=== PATIENT | female | born 1985 | race Caucasian/White ===

== ENCOUNTER 2017-07-09 10:15 | Emergency (ER) | payer SELFPAY ==
--- NOTE | 2017-07-09 10:52 | ER Document Report ---
ED GI/ - General Chief Complaint: Urinary Problem Stated Complaint: URINARY ISSUES Time Seen by Provider: 07/09/17 10:26 Mode of Arrival: Ambulatory Information source: Patient TRAVEL OUTSIDE OF THE U.S. IN LAST 30 DAYS: No - HPI Patient complains to provider of: Dysuria, Hematuria Onset: Other - 2 weeks Timing/Duration: Gradual, Persistent Quality of pain: Burning Severity at maximum: Moderate Severity in ED: Moderate Pain Level: 4 Location: Suprapubic Similar symptoms previously: Yes Recently seen / treated by doctor: No Notes: 07/09/17 10:50 Patient is a 32-year-old female who presents to the emergency room complaining of dysuria with urinary frequency and hematuria that is been worsening over the past 2 weeks, she denies any fevers, no nausea or vomiting, states she tried drinking cranberry juice and lots of water at home but symptoms have worsened, denies any vaginal discharge, denies being , has been on the Depo- Provera shot for the past 4 years and has not had a menstrual cycle in the last 4 years as well, denies being - Related Data Allergies/Adverse Reactions: butorphanol tartrate [From Stadol] Allergy (Verified 07/09/17 10:23) fluoxetine HCl [From Prozac] Allergy (Verified 07/09/17 10:23) tramadol [From Ultram] Adverse Reaction (Verified 07/09/17 10:23) Past Medical History - General Information source: Patient - Social History Smoking Status: Current Every Day Smoker Chew tobacco use (# tins/day): No Frequency of alcohol use: None Family History: Reviewed & Not Pertinent Renal/ Medical History: Denies: Hx Peritoneal Dialysis Past Surgical History: Reports: Hx Section, Hx Cholecystectomy, Hx Tonsillectomy - adneoids - Immunizations Immunizations up to date: Yes Hx Diphtheria, Pertussis, Tetanus Vaccination: Yes Review of Systems - Review of Systems Constitutional: No symptoms reported EENT: No symptoms reported Cardiovascular: No symptoms reported Respiratory: No symptoms reported Gastrointestinal: No symptoms reported Genitourinary: See HPI Female Genitourinary: No symptoms reported Musculoskeletal: No symptoms reported Skin: No symptoms reported Hematologic/Lymphatic: No symptoms reported Neurological/Psychological: No symptoms reported -: Yes All other systems reviewed and negative Physical Exam - Vital signs Vitals: Temp Pulse Resp BP Pulse Ox 97.9 F 64 20 122/84 100 07/09/17 10:23 07/09/17 10:23 07/09/17 10:23 07/09/17 10:23 07/09/17 10:23 - Notes Notes: - General General appearance: Appears well, Alert In distress: None - HEENT Head: Normocephalic, Atraumatic Eyes: Normal Conjunctiva: Normal Extraocular movements intact: Yes Eyelashes: Normal Pupils: PERRL - Respiratory Respiratory status: No respiratory distress - Cardiovascular Rhythm: Regular - Abdominal Inspection: Normal - Back Back: Normal - Extremities General upper extremity: Normal inspection General lower extremity: Normal inspection - Neurological Neuro grossly intact: Yes Orientation: AAOx4 Aurora Coma Scale Eye Opening: Spontaneous Aurora Coma Scale Verbal: Oriented Kiko Coma Scale Motor: Obeys Commands Kiko Coma Scale Total: 15 - Psychological Associated symptoms: Normal affect, Normal mood - Skin Skin Temperature: Warm Skin Moisture: Dry Skin Color: Normal Course - Re-evaluation Re-evalutation: 07/09/17 12:26 Patient symptoms are consistent with a urinary tract infection, urinalysis confirms this, patient will be discharged with prescription for antibiotics and advised to follow-up with a primary care provider or return if symptoms worsen, patient acknowledges understanding and agreement with this plan - Vital Signs Vital signs: Temp Pulse Resp BP Pulse Ox 97.9 F 64 20 122/84 100 07/09/17 10:23 07/09/17 10:23 07/09/17 10:23 07/09/17 10:23 07/09/17 10:23 - Laboratory Laboratory results interpreted by me: 07/09/17 10:53 Urine Protein 100 H Urine Blood MODERATE H Ur Leukocyte Esterase LARGE H Discharge - Discharge Clinical Impression: UTI (urinary tract infection) Qualifiers: Urinary tract infection type: site unspecified Hematuria presence: without hematuria Qualified Code(s): N39.0 - Urinary tract infection, site not specified Condition: Stable Disposition: HOME, SELF-CARE Instructions: Urinary Tract Infection ([facility]), Cephalexin ([facility]) Additional Instructions: Follow up with your primary care provider in one to 2 days. Return to the emergency room immediately if symptoms worsen or any additional concerns. Prescriptions: Cephalexin Monohydrate [Keflex 500 mg Capsule] 500 mg PO BID #20 capsule Phenazopyridine HCl [Pyridium 200 mg Tablet] 200 mg PO TID #15 tablet
[2017-07-09 12:20] LABS: APPEARANCE,URINE CLOUDY; BILIRUBIN,URINE NEGATIVE (NEGATIVE); GLUCOSE, URINE NEGATIVE (NEGATIVE); KETONES,URINE NEGATIVE (NEGATIVE); LEUKOCYTE ESTERASE,URINE LARGE (NEGATIVE); NITRITE,URINE NEGATIVE (NEGATIVE); PROTEIN,URINE 100 mg/dL (NEGATIVE); URINE SPECIFIC GRAVITY 1.013; UROBILINOGEN,URINE NEGATIVE mg/dL (<2.0)
[2017-07-09] MEDS ORDERED: PHENAZOPYRIDINE HCL 200 MG TABLET PO ONE (12:26)
[2017-07-09] MEDS ORDERED: CEPHALEXIN 500 MG CAPSULE PO ONE (12:26)
[2017-07-09 12:40] VITALS: BP 122/80
== END 2017-07-09 12:35 | disposition home or self-care (01) ==
LOC: ER 10:15
DX: N39.0 Urinary tract infection, site not specified (principal); F17.200 Nicotine dependence, unspecified, uncomplicated; Z88.8 Allergy status to other drugs, medicaments and biological substances; Z88.5 Allergy status to narcotic agent
CPT/HCPCS: 99283; 87086; 81025; 87088; 81001; 87186; J3490

== ENCOUNTER 2018-01-11 14:35 | Emergency (ER) | payer SELFPAY ==
[2018-01-11 14:40] VITALS: BP 134/74
[2018-01-11] MEDS ORDERED: PENICILLIN V POTASSIUM 500 MG TABLET PO ONE (15:42)
[2018-01-11] MEDS ORDERED: KETOROLAC TROMETHAMINE INJ/PF 30 MG/1 ML SDV IM ONE (15:42)
--- NOTE | 2018-01-11 15:45 | ER Document Report ---
HPI - HPI Patient complains to provider of: toothache Pain Level: 4 Context: Patient is a 32-year-old female presents emergency department complaining of left upper toothache for the past 4 days. Patient states his been taking Motrin and BC powder at home without any significant improvement. Rates it as a 5 out of 5 in pain. Appears to be tooth #14. Denies any foul odor or foul drainage, difficulty swallowing, difficulty breathing, fevers or chills, neck swelling. - REPRODUCTIVE Reproductive: DENIES: : Past Medical History - Social History Smoking Status: Current Every Day Smoker Family History: Reviewed & Not Pertinent Renal/ Medical History: Denies: Hx Peritoneal Dialysis Past Surgical History: Reports: Hx Section, Hx Cholecystectomy, Hx Tonsillectomy - adneoids - Immunizations Immunizations up to date: Yes Hx Diphtheria, Pertussis, Tetanus Vaccination: Yes Vertical Provider Document - CONSTITUTIONAL Agree With Documented VS: Yes Notes: PHYSICAL EXAM GENERAL: Alert, interacts well. HEENT: NCAT,MMM, Uvula midline. Airway patent. No evidence of tonsillar enlargement, peritonsillar abscess, retropharyngeal abscess. Dental erosion noted at the root of tooth 14 without any surrounding swelling, fluctuance concerning for abscess. No evidence of Sam's angina HEART: Regular rate and rhythm. No murmurs, gallops, or rubs. NEUROLOGICAL: Alert and oriented x4. Normal speech. PSYCH: Normal affect, normal mood. SKIN: Warm, dry, normal turgor. No rashes or lesions noted. - INFECTION CONTROL TRAVEL OUTSIDE OF THE U.S. IN LAST 30 DAYS: No - RESPIRATORY O2 Sat by Pulse Oximetry: 100 Course - Re-evaluation Re-evalutation: 01/11/18 15:44 Patient is a 32-year-old female who is hemodynamically stable, no acute distress and afebrile. Presentation is most consistent with likely an infected tooth. Airway is patent. Vitals within normal limits. Patient is able swallow without any difficulty. There is no significant facial swelling. Patient will be started on antibiotics. I've instructed to follow-up with dentistry as earliest ability for definitive management. Return precautions and follow-up recommendations have been discussed at length. - Vital Signs Vital signs: Temp Pulse Resp BP Pulse Ox 98.4 F 76 18 134/74 H 100 01/11/18 14:39 01/11/18 14:39 01/11/18 14:39 01/11/18 14:39 01/11/18 14:39 Discharge - Discharge Clinical Impression: Toothache Condition: Good Disposition: HOME, SELF-CARE Additional Instructions: You have been seen for dental pain. It is very important that you follow-up with a dentist for definitive care. Please return if you develop fever greater than 101, swelling in your face, vomiting, difficulty breathing or swallowing, or any other symptoms that are concerning to you. For pain you should take ibuprofen 600 mg every 6 hours as needed. [facility] Address: [address] [place] [address], [place], [place] [facility] [address] [place], [place] Friday mornings, by appointment [facility] [address] [place] [address] [facility] [place] [address] [facility] 925 [facility] (4th) [place] [facility] [address] [email or web address] [address] [place] [address] Friday- 8:00am to 5:00 pm Will see patients from other [facility]. Charges based on income and family size and accepts Medicare, Medicaid, and Insurances Will pull molars [facility] Student Clinics [facility] [phone] Hours of Operation 8:00 am - 4:30 pm weekdays The following dental offices accept Medicaid: [facility] Dr. León Dr. Rizzo Dr. Campos Dr. Ly Jae Ramirez Lutsavage, and Osvaldo oral surgery Dr. Jarrell ([place]) Dr. Pierce ([place]) [facility] Drs. Hurt and Abdi ([place]) Dr. James ([place]) [facility] Dr. Razo ([place]) Drs. Orozco and ([place]) Medicaid Care Line Forms: Elevated Blood Pressure
== END 2018-01-11 16:00 | disposition home or self-care (01) ==
LOC: ER 14:35
DX: K03.2 Erosion of teeth (principal); K08.89 Other specified disorders of teeth and supporting structures; F17.200 Nicotine dependence, unspecified, uncomplicated
CPT/HCPCS: 99282; 96372; J1885

== ENCOUNTER 2018-06-30 09:28 | Emergency (ER) | payer SELFPAY ==
[2018-06-30] MEDS ORDERED: LIDOCAINE 2% VISCOUS SOLN 20 ML UDCUP PO ONE (11:50)
[2018-06-30] MEDS ORDERED: PENICILLIN V POTASSIUM 500 MG TABLET PO ONE (11:50)
--- NOTE | 2018-06-30 11:58 | ER Document Report ---
ED Oral Problem - General Chief Complaint: Toothache Stated Complaint: TOOTH PAIN Time Seen by Provider: 06/30/18 11:39 Mode of Arrival: Ambulatory Information source: Patient Notes: 33-year-old female presented ED for complaint of left upper jaw pain for "a while". He states the pains been at least 6 months she states she has not been able to get into see somebody because she does not have insurance. Is alert and oriented respirations regular and unlabored speaking in full sentences. TRAVEL OUTSIDE OF THE U.S. IN LAST 30 DAYS: No - HPI Patient complains to provider of: Toothache Onset: Other Onset: Gradual - 6 months Quality of pain: Sharp, Throbbing Severity: Moderate Pain Level: 4 Associated symptoms: Toothache Worsened by: Cold Relieved by: Nothing Similar symptoms previously: Yes Recently seen / treated by doctor/dentist: No - Related Data Allergies/Adverse Reactions: butorphanol tartrate [From Stadol] Allergy (Verified 01/11/18 14:35) fluoxetine HCl [From Prozac] Allergy (Verified 01/11/18 14:35) tramadol [From Ultram] Adverse Reaction (Verified 01/11/18 14:35) Past Medical History - General Information source: Patient - Social History Smoking Status: Current Every Day Smoker Cigarette use (# per day): Yes - One third pack per day Chew tobacco use (# tins/day): No Smoking Education Provided: Yes - 4 minutes Frequency of alcohol use: Rare Drug Abuse: None Occupation: Horses/hotel Lives with: Family Family History: Reviewed & Not Pertinent Patient has suicidal ideation: No Patient has homicidal ideation: No - Past Medical History Cardiac Medical History: Reports: None Pulmonary Medical History: Reports: Hx Pneumonia EENT Medical History: Reports: None Neurological Medical History: Reports: None Endocrine Medical History: Reports: None Renal/ Medical History: Reports: None Malignancy Medical History: Reports: None GI Medical History: Reports: None Musculoskeletal Medical History: Reports None Skin Medical History: Reports None Psychiatric Medical History: Reports: None Traumatic Medical History: Reports: None Infectious Medical History: Reports: None Past Surgical History: Reports: Hx Adenoidectomy, Hx Section, Hx Cholecystectomy, Hx Tonsillectomy - adneoids - Immunizations Immunizations up to date: Yes Hx Diphtheria, Pertussis, Tetanus Vaccination: Yes Review of Systems - Review of Systems Constitutional: No symptoms reported EENT: Dental problem Cardiovascular: No symptoms reported Respiratory: No symptoms reported Gastrointestinal: No symptoms reported Genitourinary: No symptoms reported Female Genitourinary: No symptoms reported Musculoskeletal: No symptoms reported Skin: No symptoms reported Hematologic/Lymphatic: No symptoms reported Neurological/Psychological: No symptoms reported -: Yes All other systems reviewed and negative Physical Exam - Vital signs Vitals: Temp Pulse Resp BP Pulse Ox 98.6 F 69 14 148/88 H 100 06/30/18 09:49 06/30/18 09:49 06/30/18 09:49 06/30/18 09:49 06/30/18 09:49 Interpretation: Normal - General General appearance: Appears well, Alert - HEENT Head: Normocephalic, Atraumatic Eyes: Normal Pupils: PERRL Ears: Normal External canal: Normal Tympanic membrane: Normal Sinus: Normal Nasal: Normal Mouth/Lips: Caries - Left upper jaw with mild erythema around the tooth Mucous membranes: Normal Pharynx: Normal Neck: Anterior cervical chain - Respiratory Respiratory status: No respiratory distress Chest status: Nontender Breath sounds: Normal Chest palpation: Normal - Cardiovascular Rhythm: Regular Heart sounds: Normal auscultation Murmur: No - Abdominal Inspection: Normal Distension: No distension Bowel sounds: Normal Tenderness: Nontender Organomegaly: No organomegaly - Back Back: Normal, Nontender - Extremities General upper extremity: Normal inspection, Nontender, Normal color, Normal ROM , Normal temperature General lower extremity: Normal inspection, Nontender, Normal color, Normal ROM , Normal temperature, Normal weight bearing. No: Cathy's sign - Neurological Neuro grossly intact: Yes Cognition: Normal Orientation: AAOx4 Kiko Coma Scale Eye Opening: Spontaneous Kiko Coma Scale Verbal: Oriented Freedom Coma Scale Motor: Obeys Commands Kiko Coma Scale Total: 15 Speech: Normal Motor strength normal: LUE, RUE, LLE, RLE Sensory: Normal - Psychological Associated symptoms: Normal affect, Normal mood - Skin Skin Temperature: Warm Skin Moisture: Dry Skin Color: Normal Course - Re-evaluation Re-evalutation: 06/30/18 20:41 Patient was treated with viscous lidocaine and Penicillin VK. Patient was instructed to follow-up with her dentist and given a list of the local dentist to get an appointment to have her tooth treated. - Vital Signs Vital signs: Temp Pulse Resp BP Pulse Ox 97.7 F 77 16 122/82 99 06/30/18 12:04 06/30/18 12:04 06/30/18 12:04 06/30/18 12:04 06/30/18 12:04 Discharge - Discharge Clinical Impression: Pain due to dental caries Condition: Stable Disposition: HOME, SELF-CARE Additional Instructions: TOOTHACHE: Your pain is due to dental decay. The tooth must be repaired in order for you to feel better. You will, therefore, be referred to a dentist. We do not have dentists on the staff at [facility]. Severe swelling or drainage around a tooth usually means a dental abscess. This also requires evaluation and treatment by the dentist, but antibiotics may be prescribed while awaiting dental treatment. You should be rechecked immediately if you develop major swelling of the face, increasing pain, a lump in the jaw or gums, headache, difficulty swallowing, or fever. PENICILLIN V K: You have been given a prescription for Penicillin VK. Your physician has determined that this is the best antibiotic for your condition. Pen VK can be taken with meals, however more of the antibiotic gets into the bloodstream if it's taken on an empty stomach. Penicillin usually has no side effects. However, allergy to penicillins is common. If you have had an allergic reaction to any drug of the penicillin family, you should never take any other penicillin. Notify your doctor at once if you develop hives, itching, swelling, faintness, or shortness of breath. Been given a syringe of viscous lidocaine peers but a small amount on your finger and applied to the tooth and gums. If you can get your tooth good and numb dry out the tooth that is painful. [place] full of the dental putty which will prevent cold air and fluids or warm fluids from getting to the nerve that is exposed. The only way to get the pain to completely stop is to go to a dentist and have a tooth care for. FOLLOW-UP CARE: You have been referred for follow-up care to the dentists listed below. Call the dentists office for an appointment as you were instructed or within the next two days. If you experience worsening or a significant change in your symptoms, notify the physician immediately or return to the Emergency Department at any time for re-evaluation. [facility] [address] [phone] [facility] [address] [place] [address] [facility] [address] [facility] [address] [facility] (4th) [facility] [address] [email or web address] [address] [place] [address] Friday- 8:00am to 5:00 pm Will see patients from other [facility]. Charges based on income and family size and accepts Medicare, Medicaid, and Insurances Will pull molars [facility] [address] Hours of Operation 8:00 am - 4:30 pm weekdays The following dental offices accept Medicaid: [facility] Dr. León Dr. Rizzo Dr. Campos Dr. Ly Jae Ramirez, Krish, and Osvaldo oral surgery Dr. Jarrell ([place]) Dr. Pierce ([place]) [facility] Drs. Hernandez ([place]) Dr. James ([place]) [facility] Dr. Razo ([place]) Drs. Orozco and ([place]) Medicaid Care Line Prescriptions: Ibuprofen 800 mg PO Q8HP PRN #20 tablet PRN Reason: Penicillin V Potassium [Penicillin Vk 500 mg Tablet] 500 mg PO BID #20 tablet Forms: Elevated Blood Pressure, Smoking Cessation Education, Return to Work Referrals: DENTISTRY [Provider Group] - Follow up as needed
[2018-06-30 12:08] VITALS: BP 122/82
== END 2018-06-30 12:05 | disposition home or self-care (01) ==
LOC: ER 09:28
DX: K02.9 Dental caries, unspecified (principal); K08.89 Other specified disorders of teeth and supporting structures; F17.210 Nicotine dependence, cigarettes, uncomplicated
CPT/HCPCS: 99406; 99282; J3490